=== PATIENT | female | born 1980 | race Caucasian/White ===

== ENCOUNTER 2022-07-16 12:40 | Observation (INO) | payer OTHER ==
[~2022-07-16] VITALS: Ht 167.6 cm; Wt 49.4 kg
[2022-07-16 13:06] LABS: HEMOGLOBIN 13.1 gm/dl (12.3-15.3); RED BLOOD COUNT 4.4 M/UL (4.00-5.10); WHITE BLOOD COUNT 6.9 K/UL (4.5-11.0)
[2022-07-16 13:37] LABS: BUN/CREATININE RATIO 27 (0-10)
--- NOTE | 2022-07-16 18:20 | NUR ---
07/16/22 1810 RECEIVED FROM ED VIA . ORIENTED TO ROOM, UNIT AND CALL MENDEZ GIVEN.
[2022-07-17 04:12] LABS: HEMOGLOBIN 13.2 gm/dl (12.3-15.3); RED BLOOD COUNT 4.45 M/UL (4.00-5.10)
[2022-07-17 04:56] LABS: BUN/CREATININE RATIO 35 (0-10)
[2022-07-17] MEDS ORDERED: BUPRENORPHIN-N1 EACH SL (11:11)
[2022-07-17] MEDS ORDERED: TRAZODONE HCL150 MG PO (11:12)
[2022-07-17] MEDS ORDERED: ESCITALOPRAM OX20 MG PO (11:12)
[2022-07-17] MEDS ORDERED: GABAPENTIN800 MG PO (11:12)
[2022-07-17] MEDS ORDERED: MIRTAZAPINE45 MG PO (11:13)
[2022-07-17] MEDS ORDERED: PROAIR HFA8.5 GM INH (11:13)
[2022-07-17] MEDS ORDERED: ADVAIR 250-501 EACH INH (11:14)
[2022-07-17] MEDS ORDERED: PROTONIX40 MG PO (11:14)
[2022-07-17] MEDS ORDERED: DULOXETINE HCL60 MG PO (11:17)
[2022-07-17] MEDS ORDERED: BREO ELLIPTA 21 EACH INH (11:17)
[2022-07-17] MEDS ORDERED: ARTHRITIS PAIN150 GM TP (11:18)
[2022-07-17] MEDS ORDERED: LIDOCAINE30 G1 TOP (11:19)
[2022-07-17] MEDS ORDERED: NICOTINE PATCH1 EAC1 TD (11:20)
[2022-07-17] MEDS ORDERED: MULTIVITAMIN1 EACH PO (11:20)
[2022-07-17] MEDS ORDERED: ANTACID LIQUID355 ML PO (11:21)
[2022-07-17] MEDS ORDERED: BENTYL 10MG CAP10 MG PO (11:22)
[2022-07-17] MEDS ORDERED: CLONIDINE HCL0.1 MG PO (11:24)
[2022-07-17] MEDS ORDERED: COLACE100 MG PO (11:25)
[2022-07-17] MEDS ORDERED: DOXEPIN HCL50 MG PO (11:25)
[2022-07-17] MEDS ORDERED: CYCLOBENZAPRINE10 MG PO (11:26)
[2022-07-17] MEDS ORDERED: IBU400 MG PO (11:27)
[2022-07-17] MEDS ORDERED: IMODIUM CAP 2 MG2 MG PO (11:28)
[2022-07-17] MEDS ORDERED: MEDROL DOSEPAK 24 MG PO (11:43)
[2022-07-17] MEDS ORDERED: IPRAT-ALBUT 0.5-3 ML INH (11:43)
== END 2022-07-17 12:57 | disposition home or self-care (01) ==
LOC: ER1 12:40 → MED SURG 4 18:11 → ER1 18:53 → MED SURG 4 20:33
PROVIDERS: Emergency Medicine; Physician Assistant Medical; ADMIT Internal Medicine
DX: J44.1 Chronic obstructive pulmonary disease with (acute) exacerbation (principal); J96.01 Acute respiratory failure with hypoxia; F17.210 Nicotine dependence, cigarettes, uncomplicated; F41.9 Anxiety disorder, unspecified; F15.11 Other stimulant abuse, in remission; Z20.822 Contact with and (suspected) exposure to COVID-19; Z88.5 Allergy status to narcotic agent; Z79.899 Other long term (current) drug therapy; Z86.018 Personal history of other benign neoplasm; Z87.01 Personal history of pneumonia (recurrent)
CPT/HCPCS: 71045; 80048; 80053; 82550; 82553; 83735; 84484; 85025; 85027; 85379; 93005; 94640; 94760; 96376; 99285; G0378; J0696; J2930; U0002

== ENCOUNTER 2022-07-22 15:23 | Emergency (ER) | payer OTHER ==
[~2022-07-22 15:23] MED LIST: ADVAIR 250-501 EACH INH; ANTACID LIQUID355 ML PO; ARTHRITIS PAIN150 GM TP; BENTYL 10MG CAP10 MG PO; BREO ELLIPTA 21 EACH INH; BUPRENORPHIN-N1 EACH SL; CLONIDINE HCL0.1 MG PO; COLACE100 MG PO; CYCLOBENZAPRINE10 MG PO; DOXEPIN HCL50 MG PO; DULOXETINE HCL60 MG PO; ESCITALOPRAM OX20 MG PO; GABAPENTIN800 MG PO; IBU400 MG PO; IMODIUM CAP 2 MG2 MG PO; IPRAT-ALBUT 0.5-3 ML INH; LIDOCAINE30 G1 TOP; MEDROL DOSEPAK 24 MG PO; MIRTAZAPINE45 MG PO; MULTIVITAMIN1 EACH PO; NICOTINE PATCH1 EAC1 TD; PROAIR HFA8.5 GM INH; PROTONIX40 MG PO; TRAZODONE HCL150 MG PO
[2022-07-22 15:59] LABS: RED BLOOD COUNT 4.66 M/UL (4.00-5.10)
[2022-07-22 16:30] LABS: BUN/CREATININE RATIO 26 (0-10)
== END 2022-07-22 22:17 | disposition home or self-care (01) ==
LOC: ER1 15:23
PROVIDERS: Emergency Medicine
DX: R07.9 Chest pain, unspecified (principal); R00.0 Tachycardia, unspecified; K21.9 Gastro-esophageal reflux disease without esophagitis; F17.210 Nicotine dependence, cigarettes, uncomplicated; Z88.5 Allergy status to narcotic agent; Z51.81 Encounter for therapeutic drug level monitoring
CPT/HCPCS: 71045; 80053; 81001; 82550; 82553; 83690; 83735; 84484; 84703; 85025; 85379; 85610; 85730; 93005; 99285